=== PATIENT | female | born 1965 | race Two or more races ===

== ENCOUNTER 2019-04-14 14:11 | Emergency (ER) | payer OTHER ==
[~2019-04-14] VITALS: Ht 160 cm; Wt 88.9 kg
[2019-04-14] MEDS ORDERED: TOPROL XL100 M1 (14:23)
[2019-04-14] MEDS ORDERED: COZAAR50 MG (14:24)
[2019-04-14] MEDS ORDERED: DICLOFENAC SODI75 MG PO (15:45)
== END 2019-04-14 15:54 | disposition home or self-care (01) ==
LOC: ER 14:11
DX: S90.01XA Contusion of right ankle, initial encounter (principal); S90.31XA Contusion of right foot, initial encounter; W18.39XA Other fall on same level, initial encounter; Y93.89 Activity, other specified; Y92.098 Other place in other non-institutional residence as the place of occurrence of the external cause; Y99.8 Other external cause status

== ENCOUNTER 2024-06-25 11:45 | Outpatient (CLI) | payer OTHER ==
[~2024-06-25 11:45] MED LIST: COZAAR50 MG; DICLOFENAC SODI75 MG PO; TOPROL XL100 M1
== END 2024-06-25 11:53 | disposition home or self-care (01) ==
LOC: SONOGRAMA 11:45
PROVIDERS: ATTEND Surgery
DX: D24.1 Benign neoplasm of right breast (principal); N60.11 Diffuse cystic mastopathy of right breast; N60.12 Diffuse cystic mastopathy of left breast

== ENCOUNTER → 2024-12-09 | Outpatient (CLI) | payer OTHER | END | disposition home or self-care (01) | LOC: SONOGRAMA 15:09 | PROVIDERS: ATTEND Surgery | DX: N60.11 Diffuse cystic mastopathy of right breast (principal) ==